=== PATIENT | female | born 1950 | race Caucasian/White ===

== ENCOUNTER → 2021-04-21 | Outpatient (CLI) | payer OTHER, MEDICARE ==
[~2021-04-21] MED LIST: VALSARTAN AND H PO
== END ==
LOC: MAMMO 13:30
DX: N64.4 Mastodynia (principal)

== ENCOUNTER 2021-04-22 10:51 | Emergency (ER) | payer OTHER, MEDICARE ==
[2021-04-22] MEDS ORDERED: VALSARTAN AND H PO (11:08)
[2021-04-22 11:34] LABS: BASO # 0.02 (0.02-0.10); EOS # 0.02 (0.04-0.40); EOS % 0.5 % (1.0-5.0); HEMATOCRIT 38.2 % (37.0-47.0); HEMOGLOBIN 13.3 g/dL (12.5-16.0); LYMPH# 0.96 (1.50-4.00); MEAN CELL VOLUME 86 fl (78-100); MEAN CORPUSCULAR HEMOGLOBIN 30 pg (27-31); MEAN CORPUSCULAR HGB CONC 35 g/dL (33-37); MEAN PLATELET VOLUME 9.5 fl (7.4-10.4); MONO # 0.34 (0.20-0.80); NEU # 2.41 (1.40-6.50); PLATELET COUNT 241 K/mm3 (130-400); RED BLOOD COUNT 4.42 M/mm3 (4.10-5.30); RED CELL DISTRIBUTION WIDTH 11.9 % (11.5-14.5); WHITE BLOOD COUNT 3.8 K/mm3 (4.8-10.8)
[2021-04-22 11:46] LABS: ALBUMIN 4.2 g/dL (3.4-4.8); POTASSIUM 3.9 mmol/L (3.5-5.1); SODIUM 128 mmol/L (136-145)
[2021-04-22 11:49] LABS: GLUCOSE 91 mg/dL (65-105); TOTAL PROTEIN 6.6 g/dL (6.2-8.1)
[2021-04-22 11:50] LABS: CARBON DIOXIDE 24 mmol/L (23-31); TOTAL BILIRUBIN 1.4 mg/dL (0.2-1.2)
[2021-04-22 11:54] LABS: AST-SGOT 25 U/L (5-34)
[2021-04-22 11:55] LABS: ALT/SGPT 20 U/L (0-55)
[2021-04-22 11:56] LABS: LIPASE 19 U/L (8-78)
[2021-04-22 12:04] LABS: TROPONIN-I < 0.03 ng/mL (<0.030)
[2021-04-22 13:15] LABS: URINE APPEARANCE CLEAR; URINE BILIRUBIN NEGATIVE (NEGATIVE); URINE BLOOD NEGATIVE (NEGATIVE); URINE COLOR YELLOW; URINE GLUCOSE NEGATIVE (NEGATIVE); URINE KETONE SMALL (NEGATIVE); URINE LEUKOCYTE ESTERASE NEGATIVE (NEGATIVE); URINE NITRATE NEGATIVE (NEGATIVE); URINE PROTEIN(semi-quant) NEGATIVE (NEGATIVE); URINE UROBILINOGEN NORMAL (NORMAL)
[2021-04-22 13:16] LABS: URINE MUCUS PRESENT (NOT PRESENT)
[2021-04-22 13:44] VITALS: BP 167/72
== END 2021-04-22 13:53 | disposition home or self-care (01) ==
LOC: ED 10:51
PROVIDERS: Nurse Practitioner
DX: I10 Essential (primary) hypertension (principal); E87.1 Hypo-osmolality and hyponatremia; Z79.899 Other long term (current) drug therapy

== ENCOUNTER → 2021-05-03 | Outpatient (CLI) | payer OTHER, MEDICARE ==
[2021-05-03 17:56] LABS: CALCIUM 8.7 mg/dL (8.3-10.5)
== END ==
LOC: LAB 17:29
PROVIDERS: Family Medicine
DX: E87.1 Hypo-osmolality and hyponatremia (principal)

== ENCOUNTER → 2021-05-10 | Outpatient (CLI) | payer OTHER, MEDICARE | LOC: RAD 08:54 | DX: M47.816 Spondylosis without myelopathy or radiculopathy, lumbar region (principal); M51.26 Other intervertebral disc displacement, lumbar region; M48.062 Spinal stenosis, lumbar region with neurogenic claudication ==